=== PATIENT | female | born 1990 | race Caucasian/White ===

== ENCOUNTER 2021-05-22 15:15 | Outpatient (CLI) | payer MEDICAID, SELFPAY ==
[2021-05-22] VITALS (8 sets, daily range): BP systolic 119–144; BP diastolic 72–88; PULSE 76–91; RESP 18; TEMP 36.9; BMI 34.7
[2021-05-22 16:22] LABS: Basophils % 0.2 %; Eosinophils # 0.2 10^3/uL (0.0-0.8); Eosinophils % 1.6 %; Hematocrit 35.8 % (37.0-47.0); Hemoglobin 12.2 g/dL (11.5-15.3); Lymphocytes # 1.6 10^3/uL (0.8-4.8); Lymphocytes % 15.5 %; Mean Corpuscular HGB Conc 34.1 g/dL (30.0-36.0); Mean Corpuscular Hemoglobin 31.9 pg (28.0-34.0); Mean Corpuscular Volume 93.7 fl (81-99); Mean Platelet Volume 10.5 fL (7.4-10.4); Monocytes # 0.7 10^3/uL (0.2-0.9); Monocytes % 6.4 %; Neutrophils # 7.66 10^3/uL (1.8-7.7); Neutrophils % 75.8 %; Nucleated Red Blood Cells % 0 %; Platelet Count 269 10^3/cmm (130-400); Red Blood Count 3.82 10^6/uL (4.1-5.3); Red Cell Distribution Width 13.1 % (12.1-15.1); White Blood Count 10.1 10^3/uL (4.0-10.0)
[2021-05-22 16:29] LABS: Add Urine Microscopic? YES; Bilirubin Urine Neg (Negative); Blood Urine 2+ (Negative); Glucose Urine UA Norm (Normal); Ketones Urine Negative (Negative); Leukocyte Esterase Urine 2+ (Negative); Nitrate Urine Negative (Negative); Protein Urine 1+ (Negative); Specific Gravity, Urine 1.015 (1.005-1.030); Urine Appearance Hazy (CLEAR); Urine Color Yellow (Yellow); Urobilinogen Urine 1 mg/dL (Negative); pH Urine 6.5 (5-7)
[2021-05-22 16:31] LABS: Add Urine Culture? No; Bacteria Urine 1+ /hpf; RBC Urine 0-4 /hpf (0-2); Squamous Epithelial Cell Urine 15-25 /hpf (0-5)
[2021-05-22 16:48] LABS: Urine Creatinine 118 mg/dL (28-217)
[2021-05-22 16:52] LABS: UPRO/UCREAT Ratio 0.31 mg/mg CR; Urine Protein Random 36 mg/dL
[2021-05-22 16:54] LABS: Alanine Aminotransferase 9 U/L (0-33); Albumin Level 3.4 g/dL (3.5-5.2); Alkaline Phosphatase 256 IU/L (35-105); Anion Gap 16.9 (5-19); Aspartate Amino Transferase 14 U/L (0-32); Blood Urea Nitrogen 4 mg/dL (6-20); Calcium 8.4 mg/dL (8.5-10.5); Carbon Dioxide 17 mmol/L (22-29); Chloride 103 mmol/L (98-107); Globulin 3.1 g/dL (1.3-4.6); Glomerular Filtration Rate 143.9 mL/min (90-130); Glucose 85 mg/dL (65-115); Osmolality Calculated 272 mOsm/kg (285-295); Potassium 3.9 mmol/L (3.5-5.1); Sodium 133 mmol/L (136-145); Total Bilirubin 0.2 mg/dL (0.15-1.2); Total Protein 6.5 g/dL (6.6-8.7); Uric Acid 3.8 mg/dL (2.4-5.7)
== END 2021-05-22 17:15 | disposition home or self-care (01) ==
LOC: OPOB 15:23 → OBGYN 15:27
PROVIDERS: Visit Provider Family Medicine
DX: O16.9 Unspecified maternal hypertension, unspecified trimester (principal); Z3A.00 Weeks of gestation of pregnancy not specified
CPT/HCPCS: 36415; 59025; 80053; 81001; 82570; 84156; 84550; 85025; 99211

== ENCOUNTER 2021-05-23 06:00 | Outpatient (CLI) | payer MEDICAID, SELFPAY ==
[2021-05-29 10:10] LABS: Total Volume, Urine 1145 mL; Urine Total Protein 12.7 mg/24HR (0-150); Urine Total Protein 24 Hour 145.4 mg/dL (0-150)
== END 2021-05-23 06:01 | disposition home or self-care (01) ==
LOC: LAB 05-24 12:22
PROVIDERS: Visit Provider Family Medicine
DX: I10 Essential (primary) hypertension (principal)
CPT/HCPCS: 84156

== ENCOUNTER 2021-06-01 01:36 | Inpatient (IN) | payer MEDICAID, SELFPAY ==
[2021-06-01] VITALS (104 sets, daily range): BP systolic 113–176; BP diastolic 59–95; PULSE 67–130; RESP 15–18; TEMP 36.7–37.1; O2SAT 96–100; BMI 34.7
[2021-06-01 02:22] LABS: Urine Appearance Clear (CLEAR); Urine Color Yellow (Yellow)
[2021-06-01 02:23] LABS: Add Urine Microscopic? YES; Bilirubin Urine Neg (Negative); Blood Urine Neg (Negative); Glucose Urine UA Norm (Normal); Ketones Urine Negative (Negative); Leukocyte Esterase Urine 2+ (Negative); Nitrate Urine Negative (Negative); Protein Urine Neg (Negative); Specific Gravity, Urine 1.005 (1.005-1.030); Urobilinogen Urine Norm (Negative); pH Urine 7 (5-7)
[2021-06-01 02:27] LABS: Add Urine Culture? No; Bacteria Urine TRACE /hpf; WBC Urine 0-4 /hpf (0-5)
[2021-06-01] MEDS: dextrose 5%-lactated ringers 1,000 ML 125 ML IV (02:28)
[2021-06-01] MEDS: oxytocin 30 UNIT/500 ML BAG IV (02:30)
[2021-06-01 02:43] LABS: Urine Creatinine 31 mg/dL (28-217); Urine Protein Random 6 mg/dL
[2021-06-01 02:50] LABS: Basophils % 0.2 %; Eosinophils # 0.2 10^3/uL (0.0-0.8); Eosinophils % 1.4 %; Hematocrit 38.3 % (37.0-47.0); Hemoglobin 12.9 g/dL (11.5-15.3); Lymphocytes # 2.4 10^3/uL (0.8-4.8); Lymphocytes % 18.6 %; Mean Corpuscular HGB Conc 33.7 g/dL (30.0-36.0); Mean Corpuscular Hemoglobin 31.9 pg (28.0-34.0); Mean Corpuscular Volume 94.8 fl (81-99); Mean Platelet Volume 10.1 fL (7.4-10.4); Monocytes # 0.7 10^3/uL (0.2-0.9); Monocytes % 5.1 %; Neutrophils # 9.63 10^3/uL (1.8-7.7); Neutrophils % 73.9 %; Nucleated Red Blood Cells % 0 %; Platelet Count 282 10^3/cmm (130-400); Red Blood Count 4.04 10^6/uL (4.1-5.3); Red Cell Distribution Width 13.2 % (12.1-15.1)
[2021-06-01 03:00] LABS: UPRO/UCREAT Ratio 0.19 mg/mg CR
--- NOTE | 2021-06-01 03:41 | PC.NURSE ---
Called Lab at this time and spoke with ASTON Garcia requested an updated on CMP results, lab reports that it is not complete at this time and will post results once done.
[2021-06-01 03:49] LABS: Alanine Aminotransferase 10 U/L (0-33); Albumin Level 3.6 g/dL (3.5-5.2); Alkaline Phosphatase 290 IU/L (35-105); Aspartate Amino Transferase 15 U/L (0-32); Blood Urea Nitrogen 4 mg/dL (6-20); Calcium 8.8 mg/dL (8.5-10.5); Carbon Dioxide 19 mmol/L (22-29); Chloride 103 mmol/L (98-107); Globulin 3.1 g/dL (1.3-4.6); Glomerular Filtration Rate 143.9 mL/min (90-130); Glucose 85 mg/dL (65-115); Osmolality Calculated 276 mOsm/kg (285-295); Sodium 135 mmol/L (136-145); Total Bilirubin 0.2 mg/dL (0.15-1.2); Total Protein 6.7 g/dL (6.6-8.7); Uric Acid 3.3 mg/dL (2.4-5.7)
[2021-06-01 03:52] LABS: Anion Gap 17.1 (5-19); Potassium 4.1 mmol/L (3.5-5.1)
[2021-06-01] MEDS: fentaNYL 50 mcg/mL INJ 2mL IVP (04:35)
[2021-06-01] MEDS: lactated ringers 1,000 ML 999 ML IV (04:42)
--- NOTE | 2021-06-01 06:26 | P.ANESASSM_ITS ---
Pre-Anesthetic Assessment Pre-Anesthetic Assessment: Height/Weight: Height 1.63 m Weight 91.626 kg Temp Pulse Resp BP 98.1 F 67 18 173/87 06/01/21 04:43 06/01/21 06:02 06/01/21 04:35 06/01/21 06:02 Preop Diagnosis: labor pain Proposed Procedure: epidural Familial anesthetic complications: none Was Beta Lyric taken within 24 hours: N/A Was Clonidine taken within 24 hours: N/A Social: Social History: Tobacco and No alcohol Exam: Pre-Anes Outpt Exam: alert, oriented x 3, clear to auscultation bilaterally and regular rate & rhythm Airway: Submandibular: WNL Cervical ROM: WNL MP: 2 Dentition: False Pulmonary: Pulmonary: None reported CV/HEM: CV/HEM: HTN : : None reported Hepatic: Hepatic: None reported Metabolic: Metabolic: None reported Musc/skel: Musc/skel: None reported Neuropsych: Neuropsych: None reported Anesthetic Plan: ASA status: 2 Anesthesia: Regional (specify below) Risk of > 500 ml blood loss (7ml/kg in children): No Meds/Allergies Current Medications: Current Medications Generic Name Dose Route Start Last Admin Trade Name Freq PRN Reason Stop Dose Admin Fentanyl 25 - 100 mcg 06/01/21 01:36 06/01/21 04:35 Fentanyl 50 Mcg/ Ml Inj 2ml IVP 25 mcg Q1H PRN Administration SEVERE PAIN Lactated Ringer's 1,000 mls @ 999 m ls/hr 06/01/21 01:36 06/01/21 04:42 Lactated Ringers IV 999 mls/hr .Q1H1M PRN Administration See label comment s Dextrose/Lactated Ringer's 1,000 mls @ 125 m ls/hr 06/01/21 01:36 06/01/21 02:28 Dextrose 5%-Lact ated Ringers IV 125 mls/hr .Q8H PRN Administration LABOR INDUCTION Oxytocin 30 unit in 500 ml s @ 1 mls/hr 06/01/21 01:36 06/01/21 05:19 Pitocin IV 9 milliunit/min .Q24H PRN 9 mls/hr labor induction Titration Protocol 1 MILLIUNIT/MIN PFSH Anesthesia Female Reproductive History: : 3 Data Anesthesia CBC & Chem 7: 06/01/21 02:03 06/01/21 02:03 Other Labs: Laboratory Results - last 48 hr 06/01/21 06/01/21 06/01/21 01:37 01:37 02:03 WBC 13.0 H RBC 4.04 L Hgb 12.9 Hct 38.3 MCV 94.8 MCH 31.9 MCHC 33.7 RDW 13.2 Plt Count 282 MPV 10.1 Neut % (Auto) 73.9 Lymph % (Auto) 18.6 [place] % (Auto) 5.1 Eos % (Auto) 1.4 Baso % (Auto) 0.2 Neut # (Auto) 9.63 H Lymph # (Auto) 2.4 [place] # (Auto) 0.7 Eos # (Auto) 0.2 Baso # (Auto) 0.0 Nucleated RBC % (auto) 0 Nucleated RBCs # 0.0 Sodium Potassium Chloride Carbon Dioxide Anion Gap BUN Creatinine GFR Calculation Glucose Calculated Osmolality Uric Acid Calcium Total Bilirubin AST ALT Alkaline Phosphatase Total Protein Albumin Globulin Urine Color Yellow Urine Appearance Clear Urine pH 7 Ur Specific [place] 1.005 Urine Protein Neg Urine Glucose (UA) Norm Urine Ketones Negative Urine Blood Neg Urine Nitrate Negative Urine Bilirubin Neg Urine Urobilinogen Norm Ur Leukocyte Esterase 2+ H Urine RBC None Urine WBC 0-4 H Ur Squamous Epith Cells 10-15 H Amorphous Sediment Not Reportable Urine Bacteria Trace U Random Total Protein 6 Urine Creatinine 31 Protein/Creatinin Ratio 0.19 06/01/21 02:03 WBC RBC Hgb Hct MCV MCH MCHC RDW Plt Count MPV Neut % (Auto) Lymph % (Auto) [place] % (Auto) Eos % (Auto) Baso % (Auto) Neut # (Auto) Lymph # (Auto) [place] # (Auto) Eos # (Auto) Baso # (Auto) Nucleated RBC % (auto) Nucleated RBCs # Sodium 135 L Potassium 4.1 Chloride 103 Carbon Dioxide 19 L Anion Gap 17.1 BUN 4 L Creatinine 0.5 GFR Calculation 143.9 H Glucose 85 Calculated Osmolality 276 L Uric Acid 3.3 Calcium 8.8 Total Bilirubin 0.2 AST 15 ALT 10 Alkaline Phosphatase 290 H Total Protein 6.7 Albumin 3.6 Globulin 3.1 Urine Color Urine Appearance Urine pH Ur Specific [place] Urine Protein Urine Glucose (UA) Urine Ketones Urine Blood Urine Nitrate Urine Bilirubin Urine Urobilinogen Ur Leukocyte Esterase Urine RBC Urine WBC Ur Squamous Epith Cells Amorphous Sediment Urine Bacteria U Random Total Protein Urine Creatinine Protein/Creatinin Ratio Cardiac Studies: No Data to Display
--- NOTE | 2021-06-01 06:59 | ANES.PROC ---
Anesthesia Procedures Procedure/Date: 06/01/21 epidural Procedure Narrative: epidural complete, bolus given, epidural pump initiated with MOLDING CUTTER education given, vitals taken during procedure using OBIX system and satisfactory throughout, patient admits to decrease pain, report of procedure to OB RN Epidural: Time Out Performed: Yes Consents Signed: Procedure Consent Consent: requested by attending/covering physician, from patient, risks and benefits reviewed and patient agrees to proceed Lumbar Level: L3-L4 Epidural position: sitting Epidural procedure: sterile prep of area, 1% lidocaine to numb the area (3 mL), 18 g needle, negative for paresthesia passed, neg for paresthesia, test dose given, 1.5% xylocaine 1:200k epi (5 mL), 0.2% Ropivacaine bolus ml (5 mL), placed PCEA, no systemic response, sterile dressing applied, L.U.D. no apparent complications and 0.2% Ropiavacaine @ mls/hr (13 mL/hr)
--- NOTE | 2021-06-01 10:12 | P.PCNOB_ITS ---
Delivery Note: Date of delivery: June 01, 2021 Pre-Delivery Course: The patient had routine care. Blood type O positive, antibody negative, UDS negative, HIV nonreactive, hepatitis B nonreactive, hepatitis C nonreactive, rubella immune, RPR nonreactive. She had been positive for trichomonas in February and was treated appropriately. GBS negative. At 36 weeks 4d gestation she had elevated blood pressures in the office that were in the severe range. She was sent to labor and delivery for further blood pressures and PIH work-up. Her blood pressures on bedrest in the hospital were within normal limits and her labs were not indicative of preeclampsia. She followed up at 37 weeks 4d gestation and had blood pressures 150/100 and 148/98. She was sent to labor and delivery again for blood pressure monitoring and repeat PIH labs but was a no-show . She then presented complaining of contractions at 38 weeks 0 days gestation where she was found to have again an initial severe blood pressure. Delivery: This is a 31-year-old at 38 weeks 0 days gestation who presented to labor and delivery complaining of regular contractions. Her initial blood pressure was severely elevated at 176/92. Decision was made to induce secondary to -induced hypertension at term. Her cervix was favorable and she was started on Pitocin. She had spontaneous rupture of membranes with clear fluid. Rupture of membranes was approximately 3 hours prior to delivery. She had a normal spontaneous vaginal delivery of a viable female infant weight 3030 g, 6 pounds 11 ounces over an intact perineum. The was suctioned at delivery and placed on the mother's chest. The cord was clamped and cut. The placenta was delivered grossly intact and normal to inspection. There were no lacerations. Mother and were doing well after delivery. Estimated blood loss 200 mL. Coding Level of Care Code Acute Nurse Administrator for Jason Sanchez
--- NOTE | 2021-06-01 13:00 | PC.NURSE ---
Patient ambulated from OB2 to OB11 in stable condition at this time.
--- NOTE | 2021-06-01 13:05 | ANE.PACU2 ---
Inpatient post-anesthesia follow up: Airway intact: Yes Vital signs: Temperature 98.1 F Pulse Rate 88 Respiratory Rate 18 Blood Pressure 126/64 Pulse Oximetry 100 Oxygen Delivery Me thod Room Air Oxygen Flow Rate Fraction of Inspir ed Oxygen Hydration adequate: Yes Nausea and vomiting: No Pain level: 2 Mental status: Baseline
[2021-06-01 13:35] LABS: Coronavirus Test Green County Not Detected
[2021-06-01] MEDS: ibuprofen 800 mg tablet PO ×2 (15:16→20:09)
[2021-06-01] MEDS: docusate sodium 100 mg Capsule PO (18:06)
[2021-06-01 22:22] LABS: Hematocrit 32.6 % (37.0-47.0); Mean Corpuscular HGB Conc 33.7 g/dL (30.0-36.0); Mean Corpuscular Hemoglobin 32.4 pg (28.0-34.0); Mean Corpuscular Volume 95.9 fl (81-99); Platelet Count 288 10^3/cmm (130-400); Red Cell Distribution Width 13.3 % (12.1-15.1); White Blood Count 16.4 10^3/uL (4.0-10.0)
[2021-06-02] VITALS (9 sets, daily range): BP systolic 118–138; BP diastolic 54–88; PULSE 69–92; RESP 15–18; TEMP 36.5–37.1; O2SAT 96–100
--- NOTE | 2021-06-02 06:32 | PC.NURSE ---
Taken off floor at this time by Loren Dixon RN for tubal.
[2021-06-02] MEDS: sodium chloride 0.9% 1,000 ML 30 ML IV (06:44)
--- NOTE | 2021-06-02 06:58 | ANES.PREANE2 ---
Pre-Anesthetic Assessment Pre-Anesthetic Assessment: Height/Weight: Height 1.63 m Weight 91.626 kg Temp Pulse Resp BP Pulse Ox 98.7 F 74 18 125/88 97 06/02/21 06:37 06/02/21 06:37 06/02/21 06:37 06/02/21 06:37 06/02/21 06:37 Preop Diagnosis: labor pain Proposed Procedure: Operation Date: 06/02/21 07:30 Proposed Procedures p Bilateral Tubal Ligation(Bilateral) - Rebecca Conley MD Was Beta Lyric taken within 24 hours: N/A Was Clonidine taken within 24 hours: N/A Social: Social History: Tobacco and No alcohol Exam: Pre-Anes Outpt Exam: alert, oriented x 3 and regular rate & rhythm Airway: Submandibular: WNL Cervical ROM: WNL MP: 2 Dentition: False Metabolic: Metabolic: Morbid obesity Anesthetic Plan: ASA status: 2 Anesthesia: General Risk of > 500 ml blood loss (7ml/kg in children): No Meds/Allergies Current Medications: Current Medications Generic Name Dose Route Start Last Admin Trade Name Freq PRN Reason Stop Dose Admin Docusate Sodium 100 mg 06/01/21 18:00 06/01/21 18:06 Docusate Sodium 100 Mg Capsule PO 100 mg BID AMY Administration Sodium Chloride 1,000 mls @ 30 ml s/hr 06/02/21 06:45 06/02/21 06:44 Sodium Chloride 0.9% IV 06/03/21 06:44 30 mls/hr .Q24H AMY Administration Ibuprofen 800 mg 06/01/21 15:00 06/01/21 20:09 Ibuprofen 800 Mg Tablet PO 800 mg TID AMY Administration PFSH Anesthesia Female Reproductive History: : 3 Data Anesthesia CBC & Chem 7: 06/01/21 22:15 06/01/21 02:03 Other Labs: Laboratory Results - last 48 hr 06/01/21 06/01/21 06/01/21 01:37 01:37 01:58 WBC RBC Hgb Hct MCV MCH MCHC RDW Plt Count MPV Neut % (Auto) Lymph % (Auto) [place] % (Auto) Eos % (Auto) Baso % (Auto) Neut # (Auto) Lymph # (Auto) [place] # (Auto) Eos # (Auto) Baso # (Auto) Nucleated RBC % (auto) Nucleated RBCs # Sodium Potassium Chloride Carbon Dioxide Anion Gap BUN Creatinine GFR Calculation Glucose Calculated Osmolality Uric Acid Calcium Total Bilirubin AST ALT Alkaline Phosphatase Total Protein Albumin Globulin Urine Color Yellow Urine Appearance Clear Urine pH 7 Ur Specific [place] 1.005 Urine Protein Neg Urine Glucose (UA) Norm Urine Ketones Negative Urine Blood Neg Urine Nitrate Negative Urine Bilirubin Neg Urine Urobilinogen Norm Ur Leukocyte Esterase 2+ H Urine RBC None Urine WBC 0-4 H Ur Squamous Epith Cells 10-15 H Amorphous Sediment Not Reportable Urine Bacteria Trace U Random Total Protein 6 Urine Creatinine 31 Protein/Creatinin Ratio 0.19 Nasal/Oral COVID-19 PCR Not detected 06/01/21 06/01/21 06/01/21 02:03 02:03 22:15 WBC 13.0 H 16.4 H RBC 4.04 L 3.40 L Hgb 12.9 11.0 L Hct 38.3 32.6 L MCV 94.8 95.9 MCH 31.9 32.4 MCHC 33.7 33.7 RDW 13.2 13.3 Plt Count 282 288 MPV 10.1 10.0 Neut % (Auto) 73.9 Lymph % (Auto) 18.6 [place] % (Auto) 5.1 Eos % (Auto) 1.4 Baso % (Auto) 0.2 Neut # (Auto) 9.63 H Lymph # (Auto) 2.4 [place] # (Auto) 0.7 Eos # (Auto) 0.2 Baso # (Auto) 0.0 Nucleated RBC % (auto) 0 Nucleated RBCs # 0.0 Sodium 135 L Potassium 4.1 Chloride 103 Carbon Dioxide 19 L Anion Gap 17.1 BUN 4 L Creatinine 0.5 GFR Calculation 143.9 H Glucose 85 Calculated Osmolality 276 L Uric Acid 3.3 Calcium 8.8 Total Bilirubin 0.2 AST 15 ALT 10 Alkaline Phosphatase 290 H Total Protein 6.7 Albumin 3.6 Globulin 3.1 Urine Color Urine Appearance Urine pH Ur Specific [place] Urine Protein Urine Glucose (UA) Urine Ketones Urine Blood Urine Nitrate Urine Bilirubin Urine Urobilinogen Ur Leukocyte Esterase Urine RBC Urine WBC Ur Squamous Epith Cells Amorphous Sediment Urine Bacteria U Random Total Protein Urine Creatinine Protein/Creatinin Ratio Nasal/Oral COVID-19 PCR Micro: Microbiology 06/01/21 01:37 Chlamydia trachomatis (GAYE) - Final Urine Random Neisseria gonorrhoeae (GAYE) - Final Trichomonas vaginalis (GAYE - Final Cardiac Studies: No Data to Display
--- NOTE | 2021-06-02 07:00 | PC.NURSE ---
ambulated patient to restroom to void prior to procedure
--- NOTE | 2021-06-02 08:29 | PM.OP ---
Operative Report Date of procedure: June 02, 2021 Pre-op Diagnosis: Desired permanent surgical sterilization Post-op diagnosis: same Procedure Done: Bilateral tubal ligation Specimens removed/disposition: Segments of right and left fallopian tube Pathology: Segments of right and left fallopian tubes Surgeon: Rebecca Conley MD Anesthesia: General Estimated blood loss (mL): 2 Complications: None Condition: stable Disposition: PACU Procedure: The patient was taken to the OR where general anesthesia was administered. She was prepped and draped in normal sterile fashion in dorsal supine position. A curvilinear infraumbilical incision was made through the skin. This was carried through to the under lying layer of fascia bluntly using a hemostat. The fascia was then entered sharply using the [place]zen[place]. The incision was extended laterally using the [place]ums taking care to avoid injury to the underlying tissue. The left fallopian tube was grasped with a Chelsi and brought into the operative field. Fimbria were identified. A distal portion of the tube was ligated and excised. Tubal ostia were visualized. A segment of the left tube was sent to pathology. The cut portions of the tube were coagulated using the Bovie and after hemostasis was obtained they were returned to the abdomen. The right fallopian tube was then grasped with a [place] and brought into the operative field. Fimbria were identified. A distal portion of the tube was ligated and excised. Specimen was sent to pathology. Tubal ostia were visualized. The cut portions of the tube were coagulated using the Bovie and after excellent hemostasis was obtained the cut portions were returned to the abdomen. The peritoneum and fascia was then reapproximated using 0 Vicryl in a running fashion. The skin was then reapproximated using 4-0 Vicryl in a running fashion. Steri-Strips and a pressure bandage were applied and patient went to recovery in stable condition. Sponge instrument and needle counts were correct.
--- NOTE | 2021-06-02 08:33 | P.DS_ITS ---
Discharge Providers BANKING CENTER MANAGER Date of Admission: 06/01/21 01:36 Date of Discharge: 06/02/21 Attending Provider at Admission: Rebecca Conley MD Attending Provider at Discharge: Rebecca Conley MD Reason for Visit Reason for Visit: Contractions Hospital Course Hospital Course This is a 31-year-old G3 now P3 who presented to labor delivery complaining of contractions. She was not making cervical change however she had severely elevated blood pressure upon arrival. She had also had isolated severely elevated blood pressure in clinic at 36 weeks gestation and mildly elevated blood pressures at 37 weeks gestation. Since she was already term and had record of at least 2 severely elevated blood pressures decision was made to go ahead and induce. She had a normal spontaneous vaginal delivery of a viable female infant. On day #1 she underwent a bilateral tubal ligation. She had average bleeding. She was ambulating, tolerating a regular diet and had good pain control on medications prior to discharge. Information Peripartum Data: Infant Delivery Method: Vaginal Physical Exam Narrative: EXAM NARRATIVE: Alert and oriented, looks, abdomen is soft and nontender, fundus is firm and U- 1. There is no calf tenderness and trace edema. Discharge Data Data Completed and Pending: Pending at discharge Category Date Time Status Pathology: Surgic al [PTH] Routine Pth 06/02/21 08:15 Ordered Labs from last 24 hours 06/01/21 06/01/21 22:15 01:58 WBC 16.4 H RBC 3.40 L Hgb 11.0 L Hct 32.6 L MCV 95.9 MCH 32.4 MCHC 33.7 RDW 13.3 Plt Count 288 MPV 10.0 Nasal/Oral COVID-1 9 PCR Not detected Vitals: Last Vital Signs Temp 97.7 F 06/02/21 08:20 Pulse 71 06/02/21 08:20 Resp 15 06/02/21 08:20 BP 125/76 06/02/21 08:20 Pulse Ox 98 06/02/21 08:20 Discharge Plan Discharge Patient Disposition: Home Condition: Stable Prescriptions: New ibuprofen 800 mg Tablet 800 mg PO TID PRN (Reason: Abdominal Discomfort) Qty: 20 RF: 0 hydrocodone-acetaminophen 5-325 mg Tablet 1 - 2 tab PO Q6H PRN (Reason: Moderate To Severe Pain) Qty: 10 RF: 0 Discharge Orders: Discharge Order (Routine); Ordered 06/02/21 Ordered By: Rebecca Conley Referrals: Rebecca Conley MD [Physician] - 4-7 days Discharge Diet: Usual diet Discharge Activity: Limit activity as instructed Patient Instructions: Depression (DC), Preeclampsia and Eclampsia After Delivery (GEN), Vaginal Delivery (DC), Breast Care for the Non- Mother (DC), Opioid Safety, Abnormal Bleeding Activity Restrictions/Additional Instructions: No lifting greater than 10 lbs for 2 weeks. Keep incision clean and dry. Discharge Attestations BANKING CENTER MANAGER Time Spent in Discharge Care*: less than 30 min Coding Level of Care Code Acute Mine Equipment Design Engineer for Chg Daniel
[2021-06-02] MEDS: docusate sodium 100 mg Capsule PO (09:21)
[2021-06-02] MEDS: prenatal vitamin Capsule 1 CAP PO (09:21)
[2021-06-02] MEDS: HYDROcodone-acetaminophen 5-325 mg Tablet PO (09:22)
[2021-06-02] MEDS: ibuprofen 800 mg tablet PO (09:22)
== END 2021-06-02 13:30 | disposition home or self-care (01) | DRG 798 ==
LOC: OPOB 09:44 → OBGYN 09:44
PROVIDERS: Admitting Provider Family Medicine; Visit Provider Family Medicine
PROC: 0U574ZZ Destruction of Bilateral Fallopian Tubes, Percutaneous Endoscopic Approach (ICD-10-PCS; CPT 58605; principal; 2021-06-02 07:30)
DX: O16.4 Unspecified maternal hypertension, complicating childbirth (principal); Z37.0 Single live birth; Z3A.38 38 weeks gestation of pregnancy; Z30.2 Encounter for sterilization
CPT/HCPCS: 36415; 59025; 59409; 80053; 81001; 82570; 84156; 84550; 85025; 85027; 87491; 87591; 87635; 87661; 88302; 99211; J1100; J1885; J2405; J2704; J2710; J2795; J3010; J3490; J7030

== ENCOUNTER 2023-08-30 06:00 | Outpatient (CLI) | payer MEDICAID, SELFPAY | END 2023-08-30 23:59 | disposition home or self-care (01) | LOC: SOT 09-03 09:20 | PROVIDERS: Visit Provider Nurse Practitioner | DX: Z46.89 Encounter for fitting and adjustment of other specified devices (principal); S62.347D Nondisplaced fracture of base of fifth metacarpal bone, left hand, subsequent encounter for fracture with routine healing; X58.XXXD Exposure to other specified factors, subsequent encounter | CPT/HCPCS: 97760; L3808 ==

== ENCOUNTER → 2023-08-30 08:26 | Outpatient (BNVA) | payer MEDICAID, SELFPAY | PROVIDERS: Referring Provider Nurse Practitioner Family; Visit Provider Nurse Practitioner | DX: S62.347A Nondisplaced fracture of base of fifth metacarpal bone, left hand, initial encounter for closed fracture; V89.2XXA Person injured in unspecified motor-vehicle accident, traffic, initial encounter | CPT/HCPCS: 73130 ==